=== PATIENT | female | born 1965 | race American Indian/Alaskan Native ===

== ENCOUNTER 2017-10-15 12:04 | Day surgery (SDC) | payer OTHER ==
[~2017-10-15 12:04] MED LIST: ANCEF/STERILE WATER 2 GM/20 ML 2 GM/20 ML SYRINGE IV SCH
[2017-10-15] MEDS ORDERED: ADRENALIN ONE (13:43)
[2017-10-15] MEDS ORDERED: MARCAINE 0.5% INFILTRATI ONE ×2 (13:43→14:57)
[2017-10-15] MEDS ORDERED: DILAUDID IV PRN (13:54)
--- NOTE | 2017-10-15 13:54 | Anesthesia Consultation ---
Anesthesia Consult and Med Hx Date of service: 10/15/17 - Airway Anesthetic Teeth Evaluation: Good (missing), Caps ROM Head & Neck: Adequate Mental/Hyoid Distance: Adequate Mallampati Class: Class I Intubation Access Assessment: Good - Pulmonary Exam CTA: Yes - Cardiac Exam Cardiac Exam: RRR - Pre-Operative Health Status ASA Pre-Surgery Classification: ASA2 Proposed Anesthetic Plan: General - Pulmonary Hx Smoking: No Hx Sleep Apnea: No (JOCELYNE PRE SCREEN LOW RISK.) - Cardiovascular System Hx Hypertension: Yes (X 1 YR) - Other Systems Hx Cancer: No - Additional Comments Anesthesia Medical History Comments: medical clearance appreciated
--- NOTE | 2017-10-15 13:54 | Anesthesia Day of Surgery ---
Anesthesia Day of Surgery - Day of Surgery Patient Examined: Yes Patient H&P Reviewed: Yes Patient is NPO: Yes
[2017-10-15] MEDS ORDERED: NACL BACTERIOSTATIC INFILTRATI ONE (13:58)
[2017-10-15] MEDS ORDERED: PEPCID IV ONE (13:59)
[2017-10-15] MEDS ORDERED: DIPRIVAN 10 MG/ML IV ONE (14:00)
[2017-10-15] MEDS ORDERED: XYLOCAINE MPF 2% ONE (14:01)
[2017-10-15] MEDS ORDERED: VERSED IV NR (14:09)
[2017-10-15] MEDS ORDERED: ZOFRAN ONE (14:53)
[2017-10-15] MEDS ORDERED: NACL 0.9% IR ONE ×3 (14:57)
[2017-10-15] MEDS ORDERED: PEPCID IV NR (15:00)
[2017-10-15] MEDS ORDERED: NACL 0.9% 1000 ML 1,000 ML IV SCH (15:00)
[2017-10-15] MEDS ORDERED: MORPHINE IV PRN (15:47)
[2017-10-15] MEDS ORDERED: PERCOCET 5/325 ONE (15:54)
[2017-10-15] MEDS ORDERED: PERCOCET 5/325 PO ONE (15:58)
[2017-10-15 18:18] VITALS: BP 120/61
--- NOTE | 2017-10-16 04:19 | Operative Report ---
PREOPERATIVE DIAGNOSES: Left knee with degenerative joint disease, meniscal tear. POSTOPERATIVE DIAGNOSES: 1. Left knee with extensive tear body medial meniscus - radial with vertical cleavage component. 2. 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 3. Extensive synovitis. PROCEDURE PERFORMED: 1. Left knee arthroscopy with partial medial meniscectomy. 2. Extensive synovectomy. 3. Chondroplasty, patella. SURGEON: Dorian Barahona MD MUSHROOM FARMER: Elbert Wells CSA ANESTHESIA: General. ESTIMATED BLOOD LOSS: Minimal. COMPLICATIONS: None. DESCRIPTION OF PROCEDURE: The patient underwent successful anesthesia. Lower extremity was then carefully positioned in a leg cristobal after being exsanguinated prepped and draped in usual fashion. Antibiotics were pre-administered. Arthroscopy was carried out utilizing standard medial and lateral portals. Systematic examination of the joint was carried out. Tricompartmental synovitis was debrided. Patellofemoral compartment demonstrated advanced chondromalacia, retropatellar primarily central. This was gently debrided with full radius resector and a surface to a stable base. Trochlear groove otherwise relatively well preserved. Lateral compartment pristine, notch with a normal ACL and PCL. Again, synovitis noted tricompartmentally which was debrided. Medial compartment demonstrated a tear of the body near the posterior horn, radial cleavage extending all the way to the periphery along with a vertical cleavage component extending anterior and posterior rendering the flaps, unstable as well. Debridement was carried out with a combination of bites full resector surface. Next a stable rim was achieved. This allowed for an elliptical excision, which was done to try to spare as much meniscus as possible and the rim as noted was stable. Intraoperative photos were obtained for documentation. The arthroscopic instruments were removed. Ports were closed with nylon sutures. Steri-Strips applied. She was taken to the recovery in satisfactory condition having tolerated the procedure well. JOB# [id number] RDP/NTS
== END 2017-10-15 17:46 | disposition home or self-care (01) ==
LOC: OR 12:04
PROVIDERS: ATTEND Orthopaedic Surgery
DX: S83.242A Other tear of medial meniscus, current injury, left knee, initial encounter (principal); M22.42 Chondromalacia patellae, left knee; I10 Essential (primary) hypertension; M65.862 Other synovitis and tenosynovitis, left lower leg; X58.XXXA Exposure to other specified factors, initial encounter; Y93.89 Activity, other specified; Y92.89 Other specified places as the place of occurrence of the external cause; Y99.8 Other external cause status
CPT/HCPCS: 29876; 29881; 97116; 97161; A4217; J0690; J1170; J2250; J2405; J2704; J0171